=== PATIENT | male | born 1990 | race Caucasian/White ===

== ENCOUNTER 2024-07-12 20:33 | Emergency (ER) | payer SELFPAY ==
[~2024-07-12] VITALS: Ht 165.1 cm; Wt 63.5 kg
[2024-07-12 20:47] VITALS: PULSE 109; RESP 24; TEMP 97.5
[2024-07-12] MEDS ORDERED: SODIUM CHLORIDE FLUSH 10 ML SYR IV PRN (21:15)
[2024-07-12 21:19] LABS: BASOPHILS # (AUTO) 0.1 (0.0-0.1); BASOPHILS % 0.4 % (0.0-1.0); EOSINOPHILS % 0.3 % (0.0-6.0); LYMPHOCYTES # (AUTO) 2.6 (1.0-3.2); LYMPHOCYTES % 21.9 % (18.0-39.1); MEAN CORPUSCULAR HEMOGLOBIN 30.1 pg (28-32); MEAN CORPUSCULAR HGB CONC 34.9 g/dL (31-35); MEAN CORPUSCULAR VOLUME 86.2 fL (81-99); MONOCYTES # (AUTO) 0.8 (0.2-0.8); MONOCYTES % 6.9 % (4.4-11.3); NEUTROPHILS # (AUTO) 8.4 (2.1-6.9); NEUTROPHILS % 70.3 % (38.7-80.0); PLATELET COUNT 450 x10e3/uL (140-360); RED BLOOD COUNT 4.99 x10e6/uL (4.3-5.7); RED CELL DISTRIBUTION WIDTH 12.4 % (11.7-14.4); WHITE BLOOD COUNT 11.96 x10e3/uL (4.8-10.8)
[2024-07-12 21:34] LABS: CLARITY,URINE CLEAR (CLEAR); COLOR,URINE YELLOW (YELLOW)
[2024-07-12 21:35] LABS: BILIRUBIN,URINE NEGATIVE (NEGATIVE); GLUCOSE, URINE NEGATIVE (NEGATIVE); KETONES,URINE 1+ (NEGATIVE); LEUKOCYTE ESTERASE ,URINE NEGATIVE (NEGATIVE); NITRITE,URINE NEGATIVE (NEGATIVE); PH,URINE 7 (5 - 7); PROTEIN,URINE DIPSTICK NEGATIVE (NEGATIVE); URINE UROBILINOGEN 0.2 mg/dL (0.2 - 1)
[2024-07-12] MEDS: ONDANSETRON HCL INJ 2MG/ML 2ML 2 MG/ML VIAL IV STA (21:41)
[2024-07-12] MEDS: KETOROLAC TROMETHAMINE 30 MG/ML VIAL IV STA (21:42)
[2024-07-12] MEDS: DICYCLOMINE HCL 20 MG/2 ML VIAL IM ONE (21:42)
[2024-07-12] MEDS: SODIUM CHLORIDE 0.9% 1000ML 1,000 ML IV ONE (21:42)
[2024-07-12 21:44] LABS: BACTERIA,URINE MODERATE /HPF; EPITHELIAL CELLS,URINE FEW /LPF; MUCUS,URINE FEW; RBC,URINE 0-5 /HPF (0-5); WBC,URINE (MAN) 0-5 /HPF (0-5)
[2024-07-12 21:58] LABS: ALBUMIN 4.8 g/dL (3.5-5.0); ALBUMIN/GLOBULIN RATIO 1.6 (0.8-2.0); ANION GAP 17.5 mmol/L (8-16); BILIRUBIN,TOTAL 0.9 mg/dL (0.2-1.2); CALCIUM 9.5 mg/dL (8.4-10.2); CREATININE, SERUM 1.2 mg/dL (0.72-1.25); POTASSIUM 3.5 mmol/L (3.5-5.1); TOTAL PROTEIN 7.8 g/dL (6.5-8.1)
[2024-07-13] MEDS ORDERED: PANTOPRAZOLE SO40 MG PO (00:26)
[2024-07-13] MEDS ORDERED: DICYCLOMINE HCL20 MG PO (00:26)
[2024-07-13 00:49] VITALS: BP 115/78; PULSE 59; RESP 18; TEMP 98.6; O2SAT 98
== END 2024-07-13 00:55 | disposition home or self-care (01) ==
LOC: ER 21:12
DX: R10.13 Epigastric pain (principal); R11.0 Nausea
CPT/HCPCS: 36415; 76705; 80053; 81001; 83690; 84484; 85025; 93005; 99283; J0500; J1885; J2405; J2470; J7030